=== PATIENT | male | born 1950 | race Caucasian/White ===

== ENCOUNTER → 2019-03-08 14:02 | Outpatient (CLI) | payer OTHER, SELFPAY ==
--- NOTE | 2019-03-08 | DI.CT.S_ITS ---
PROCEDURE: CT ABDOMEN PELVIS W CON INDICATIONS: diverticulitis/pain TECHNIQUE: After the administration of oral and intravenous contrast, 5 mm thick sections acquired from the diaphragms to the symphysis. 5 mm thick coronal and sagittal reformats were performed. For radiation dose reduction, the following was used: automated exposure control, adjustment of mA and/or kV according to patient size. COMPARISON: None. FINDINGS: Image quality: There is metallic streak artifact from patient's right bilateral hip prostheses limiting evaluation. ABDOMEN: Lung bases: There is mild dependent atelectasis bilaterally. Heart size is normal. There is a small hiatal hernia. Solid organs: There is hypoattenuation of the liver consistent with fatty infiltration. Gallbladder appears within normal limits without calcified gallstones. Biliary system is non-dilated. Pancreas enhances normally. Spleen is normal in size and enhancement. No adrenal nodules. Kidneys demonstrate no hydronephrosis. There are bilateral renal cysts. Peritoneum and bowel: Stomach and small bowel loops are normal in caliber and wall thickness. There are postsurgical changes along the stomach with multiple sutures noted. The appendix is normal in appearance. There is colonic diverticulosis with associated inflammatory changes in the sigmoid colon consistent with acute diverticulitis including inflammatory fat stranding, segmental wall thickening, and a small amount of adjacent free fluid. No definite diverticular abscess or macroscopic free air, with evaluation limited by metallic streak artifact. Nodes and vessels: No retroperitoneal or mesenteric adenopathy. Aorta and inferior vena cava are normal in caliber. Miscellaneous: No ventral hernias. PELVIS: Genitourinary: The bladder is not well evaluated due to incomplete distention and streak artifact in the pelvis. Miscellaneous: No inguinal hernias or adenopathy. Bones: No suspicious bony lesions. There are bilateral hip prostheses partially visualized. No vertebral body compression fractures. IMPRESSION: 1. Findings consistent with sigmoid diverticulitis without definite diverticular abscess or macroscopic free air. Evaluation is limited by metallic streak artifact from patient's bilateral hip prostheses. 2. Small hiatal hernia. 3. Hepatic steatosis. Dictated by: Clinton Waller M.D. on 03/08/2019 at 16:29 Approved by: Clinton Waller M.D. on 03/08/2019 at 16:32
[2019-03-08 14:37] LABS: Hematocrit 52.9 % (41-53); Hemoglobin 17.9 g/dL (13.5-17.5); Mean Corpuscular HGB Conc 33.8 % (30-36); Mean Corpuscular Hemoglobin 29.5 PG (26-34); Mean Corpuscular Volume 87.2 fL (80-100); Platelet Count 298 X10^3/uL (150-400); Red Blood Cell Count 6.06 X10^6/uL (4.5-5.9); Red Cell Distribution Width 13.2 % (11.6-14.8); White Blood Cell Count 9.2 X10^3/uL (4.5-11.0)
[2019-03-08 14:47] LABS: Alanine Aminotransferase 27 IU/L (21-72); Albumin 4.7 g/dL (3.5-5.0); Albumin Globulin Ratio 1.4 (1.0-2.8); Alkaline Phosphatase 65 U/L (38-126); Aspartate Aminotransferase 27 IU/L (17-59); BUN Creatinine Ratio 27.5 (6-22); Blood Urea Nitrogen 22 mg/dL (9-20); Calcium 9.6 mg/dL (8.4-10.2); Carbon Dioxide 30 mmol/L (22-32); Chloride 97 mmol/L (98-107); Estimated Glomerular Filt Rate > 60.0 mL/min (>60); Globulin 3.4 g/dL (1.7-4.1); Glucose 200 mg/dL (80-110); HEMOLYSIS 16 (0-50); Sodium 137 mmol/L (137-145); Total Protein 8.1 g/dL (6.3-8.2)
[2019-03-08 15:08] LABS: Erythrocyte Sedimentation Rate 3 MM/HR (0-15)
== END ==
PROVIDERS: PCP Family Medicine; Visit Provider Family Medicine
DX: K57.32 Diverticulitis of large intestine without perforation or abscess without bleeding (principal); K44.9 Diaphragmatic hernia without obstruction or gangrene; K76.0 Fatty (change of) liver, not elsewhere classified; Z96.643 Presence of artificial hip joint, bilateral
CPT/HCPCS: 36415; 74177; 80053; 85027; 85651; Q9967